=== PATIENT | male | born 2000 | race Caucasian/White ===

== ENCOUNTER 2019-05-21 02:12 | Emergency (ER) | payer BC, OTHER ==
[~2019-05-21] VITALS: Ht 180.3 cm; Wt 115.1 kg
[2019-05-21] MEDS ORDERED: LORazepam 2 mg/ml vial IV ONE (03:50)
[2019-05-21] MEDS ORDERED: iohexol 300mg/ml 100ml inj. ONE (04:09)
--- NOTE | 2019-05-21 04:34 | NUR ---
Patient has returned from CT and is sleeping comfortably. Ativan will be held at this time and patient and family is in agreement.
[2019-05-21] MEDS ORDERED: ketorolac tromethamine 15mg/ml inj. IV ONE (05:00)
[2019-05-21] MEDS ORDERED: NAPR-56 PO (05:02)
[2019-05-21] MEDS ORDERED: CYCL-1 PO (05:02)
[2019-05-21 05:49] VITALS: BP 127/68
== END 2019-05-21 05:26 | disposition home or self-care (01) ==
LOC: ER 02:13
DX: S50.11XA Contusion of right forearm, initial encounter (principal); S30.1XXA Contusion of abdominal wall, initial encounter; R51 Headache; K59.00 Constipation, unspecified; R33.9 Retention of urine, unspecified; N13.30 Unspecified hydronephrosis; M62.838 Other muscle spasm; Z79.899 Other long term (current) drug therapy; V49.9XXA Car occupant (driver) (passenger) injured in unspecified traffic accident, initial encounter; W22.11XA Striking against or struck by driver side automobile airbag, initial encounter; Y93.89 Activity, other specified; Y92.488 Other paved roadways as the place of occurrence of the external cause; Y99.8 Other external cause status
CPT/HCPCS: 70450; 74177; 96374; 99284; J1885; Q9967